=== PATIENT | male | born 1960 | race Caucasian/White ===

== ENCOUNTER 2016-08-09 15:06 | Emergency (ER) | payer OTHER ==
[~2016-08-09] VITALS: Ht 162.6 cm; Wt 70.8 kg
[~2016-08-09 15:06] MED LIST: AMB5 PO; BUPR-79 PO; IBUP600T44 PO; OXYC-57 PO
[2016-08-09 15:12] VITALS: BP 151/99; PULSE 91; TEMP 37; O2SAT 97; Ht 162.6 cm; Wt 70.8 kg
[2016-08-09] MEDS ORDERED: NAPR1TAB9 PO (19:38)
[2016-08-09] MEDS ORDERED: AMPH30TA2 PO (19:40)
[2016-08-09] MEDS ORDERED: PSEU30TA20 PO (19:42)
== END 2016-08-09 15:35 | disposition left against medical advice (07) ==
LOC: C.EDB 15:07
DX: R10.9 Unspecified abdominal pain (principal)

== ENCOUNTER 2016-08-09 18:09 | Emergency (ER) | payer OTHER ==
[~2016-08-09] VITALS: Ht 162.6 cm; Wt 69.4 kg
[2016-08-09 18:12] VITALS: TEMP 36.6; Ht 162.6 cm; Wt 69.4 kg
[2016-08-09] MEDS ORDERED: SODIUM CHLORIDE 0.9% 1000ML 1,000 ML IV STA (18:48)
[2016-08-09] MEDS ORDERED: PROMETHAZINE HCL INJ 12.5 MG in SODIUM CHLORIDE 0.9% 50ML 50 ML IV STA (18:48)
--- NOTE | 2016-08-09 18:58 | EMERGENCY ROOM VISIT NOTE ---
History Report prepared by Brenden: Ap Wade Under the Supervision of: Dr. Modesto Powers M.D. First contact with patient: 18:38 Chief Complaint: GI ASSESSMENT Stated Complaint: NAUSEA,DIZZY,HEADACHE Nursing Triage Summary: "My stomache is really messed up. It feels like somebody took a rake to it." Pain mid upper abdomen. Also reports headache. History of Present Illness The patient is a 55 year old male who presents to the Emergency Room with complaints of a constant headache since last night. The pain is localized behind the eyes and temples, and is rated 6/10 in severity. The onset of the headache was very sudden. The patient also complains of some nausea and dizziness. He denies any fevers, neck stiffness, vomiting, abdominal pain, weakness or numbness. The patient has headaches infrequently. He has not had a headache like this before. The patient denies any trauma. He does not have a history of cancer. The patient takes Adderall. He also takes Ambien almost every night. 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 Source of History: patient Onset: last night Position: head Symptom Intensity: 6/10 Timing: constant Associated Symptoms: + nausea, No fevers, No neck pain, No numbness, No vomiting, No weakness Review of Systems See HPI for pertinent positives & negatives. A total of 10 systems reviewed and were otherwise negative. Past Medical & Surgical Medical Problems: (1) No history of cancer Family History No pertinent family history Social History Smoking Status: Current Every Day Smoker Marital Status: Housing Status: lives with family Current/Historical Medications Scheduled Amphetamine-Dextroamphetamine 30MG (Adderall 30MG), 1 TAB PO DAILY Bupropion (Wellbutrin Sr), 150 MG PO DAILY Zolpidem Tartrate (Ambien *), 5 MG PO HS Scheduled PRN Naproxen (Aleve), 220 MG PO Q8H PRN for Pain Pseudoephedrine (Sudafed), 30 MG PO Q4H PRN for CONGESTION Allergies Coded Allergies: No Known Allergies (Verified , 08/09/16) Uncoded Allergies: HAY FEVER (Allergy, Unknown, 08/18/02) NONE (Allergy, Unknown, 08/18/02) Physical Exam Vital Signs Date Time Temp Pulse Resp B/P Pulse Ox O2 Delivery O2 Flow Rate FiO2 08/09/16 21:27 73 17 155/92 95 Room Air 08/09/16 19:51 76 19 143/84 98 Room Air 08/09/16 18:40 78 08/09/16 18:12 36.6 85 20 161/103 100 Room Air Physical Exam GENERAL: Patient is awake, alert, anxious and uncomfortable appearing. EYES: The conjunctivae are clear. The pupils are round and reactive. EARS, NOSE, MOUTH AND THROAT: The nose is without any evidence of any deformity. Mucous membranes are moist tongue is midline NECK: The neck is nontender and supple. RESPIRATORY: Normal respiratory effort is noted there is no evidence of wheezing rhonchi or rales CARDIOVASCULAR: Regular rate and rhythm noted there no murmurs rubs or gallops normal S1 normal S2 GASTROINTESTINAL: The abdomen is soft. Bowel sounds are present in all quadrants. Abdomen is nontender MUSCULOSKELETAL/EXTREMITIES: There is no evidence of gross deformity full range of motion is noted in the hips and shoulders SKIN: There is no obvious evidence of any rash. There are no petechiae, pallor or cyanosis noted. NEUROLOGIC: Patient is awake alert and oriented x3 strength is symmetric patellar reflexes are 2+ bilaterally Medical Decision & Procedures ER Provider Diagnostic Interpretation: Radiology results per my review and radiologist interpretation: HEAD CT NONCONTRAST CT DOSE: 601.98 mGy.cm HISTORY: Headache MUNOZ TECHNIQUE: Multiaxial CT images of the head were performed without the use of intravenous contrast. Comparison: None. Findings: The paranasal sinuses and mastoid air cells are clear. Subtle low-density region left occipital lobe. This is nonspecific. There is no evidence for acute intracranial hemorrhage. There is no midline shift. All remaining components of the brain are unremarkable. The fourth ventricle is midline. Impression: 1. Low density focus left occipital lobe. 2. This potentially relates to an old infarct although other etiologies are not excluded 3. No evidence for acute intracranial hemorrhage. 4. MRI of the brain combination, is suggested as follow-up. Electronically signed by: Marty Vaughn M.D. 08/09/2016 7:31 PM Dictated Date/Time: 08/09/2016 7:29 PM MRI OF THE BRAIN WITHOUT AND WITH IV CONTRAST CLINICAL HISTORY: MUNOZ and abnormal CT head COMPARISON STUDY: CT same date TECHNIQUE: Utilizing a 1.5 Addis magnet and dedicated coil, multiplanar, multiecho imaging of the brain was performed pre and postcontrast administration. IV administration of 8.5 mL of Gadavist contrast was uneventful. FINDINGS: Diffusion-weighted images show no evidence for an acute ischemic process. Signal characteristics the cerebellar as well as cerebral hemispheres indicate a minimal component of age-related chronic small vessel change. There is mild asymmetry occipital horns of the lateral ventricles accounting for the low density findings seen on the patient's CT exam. This appears to be primarily artifactual. No evidence for abnormal postcontrast enhancement. Ventricular system is midline. Internal artery canals is symmetric. Sella and parasellar regions are unremarkable. IMPRESSION: 1. Negative MRI of the brain for age. 2. CT findings appear to be primarily artifactual 3. No evidence for abnormal postcontrast enhancement. Electronically signed by: Marty Vaughn M.D. 08/09/2016 10:12 PM Dictated Date/Time: 08/09/2016 10:09 PM Laboratory Results 08/09/16 17:35 Red Blood Count 5.23, Mean Corpuscular Volume 80.3, Mean Corpuscular Hemoglobin 28.9, Mean Corpuscular Hemoglobin Concent 36.0, Mean Platelet Volume 9.5, Neutrophils (%) (Auto) 85.0, Lymphocytes (%) (Auto) 7.0, Monocytes (%) (Auto) 7.3, Eosinophils (%) (Auto) 0.3, Basophils (%) (Auto) 0.2, Neutrophils # (Auto) 5.09, Lymphocytes # (Auto) 0.42, Monocytes # (Auto) 0.44, Eosinophils # (Auto) 0.02, Basophils # (Auto) 0.01 08/09/16 17:35 Test 08/09/16 17:35 08/09/16 19:55 White Blood Count 5.99 K/uL (4.8-10.8) Red Blood Count 5.23 M/uL (4.7-6.1) Hemoglobin 15.1 g/dL (14.0-18.0) Hematocrit 42.0 % (42-52) Mean Corpuscular Volume 80.3 fL (80-100) Mean Corpuscular Hemoglobin 28.9 pg (25-34) Mean Corpuscular Hemoglobin Concent 36.0 g/dl (32-36) Platelet Count 159 K/uL (130-400) Mean Platelet Volume 9.5 fL (7.4-10.4) Neutrophils (%) (Auto) 85.0 % Lymphocytes (%) (Auto) 7.0 % Monocytes (%) (Auto) 7.3 % Eosinophils (%) (Auto) 0.3 % Basophils (%) (Auto) 0.2 % Neutrophils # (Auto) 5.09 K/uL (1.4-6.5) Lymphocytes # (Auto) 0.42 K/uL (1.2-3.4) Monocytes # (Auto) 0.44 K/uL (0.11-0.59) Eosinophils # (Auto) 0.02 K/uL (0-0.5) Basophils # (Auto) 0.01 K/uL (0-0.2) RDW Standard Deviation 37.1 fL (36.4-46.3) RDW Coefficient of Variation 12.8 % (11.5-14.5) Immature Granulocyte % (Auto) 0.2 % Immature Granulocyte # (Auto) 0.01 K/uL (0.00-0.02) Anion Gap 9.0 mmol/L (3-11) Est Creatinine Clear Calc Drug Dose 65.1 ml/min Estimated GFR () 88.4 Estimated GFR (Non- 76.2 BUN/Creatinine Ratio 19.5 (10-20) Calcium Level 8.2 mg/dl (8.5-10.1) Total Bilirubin 0.5 mg/dl (0.2-1) Direct Bilirubin 0.1 mg/dl (0-0.2) Aspartate Amino Transf (AST/SGOT) 24 U/L (15-37) Alanine Aminotransferase (ALT/SGPT) 41 U/L (12-78) Alkaline Phosphatase 60 U/L (45-117) Total Protein 7.3 gm/dl (6.4-8.2) Albumin 3.8 gm/dl (3.4-5.0) Lipase 113 U/L (73-393) Urine Color YELLOW Urine Appearance CLEAR (CLEAR) Urine pH 5.0 (4.5-7.5) Urine Specific [place] 1.035 (1.000-1.030) Urine Protein NEG (NEG) Urine Glucose (UA) NEG (NEG) Urine Ketones NEG (NEG) Urine Occult Blood NEG (NEG) Urine Nitrite NEG (NEG) Urine Bilirubin NEG (NEG) Urine Urobilinogen NEG (NEG) Urine Leukocyte Esterase NEG (NEG) Laboratory results per my review. Medications Administered Medications (Trade) Dose Ordered Sig/Nele Route Start Time Stop Time Status Last Admin Dose Admin Sodium Chloride (Nss 1000ml) 1,000 ml @ 999 mls/hr Q1H1M STAT IV 08/09/16 18:48 08/09/16 19:48 DC 08/09/16 19:01 999 MLS/HR Morphine Sulfate 4 mg 4 mg Q15M PRN IV 08/09/16 19:00 08/23/16 18:59 08/09/16 19:01 4 MG Promethazine HCl/ Sodium Chloride (Phenergan Inj/ Nss 50ml) 50.5 ml @ 204 mls/hr NOW STAT IV 08/09/16 18:48 08/09/16 19:02 DC 08/09/16 19:01 204 MLS/HR ED Course 1845: The patient was evaluated in room C6. A complete history and physical examination were performed. 1848: Promethazine HCl 12.5 mg / NSS 50.5 ml @ 204 mls/hr, NSS 1000 ml @999 mls/ hr. 1900: Morphine Sulfate 4 mg IV. 2200: Reassessed the patient. Discussed the findings with him. He verbalized understanding and agreement of the treatment plan. The patient is ready for discharge. 2215: Zofran Odt 4 mg PO homepack, Oxycodone IR 5 mg PO homepack. Medical Decision Etiologies such as migraine headache, meningitis, sinusitis, CO exposure, ICH, SAH, infection, tumor, headache, sinus thrombosis, arterial dissection, as well as others were entertained. Nursing notes reviewed. Additional history is obtained from the patient's significant other. The patient is a 55-year-old male who presented to the emergency department for an evaluation of headache. The patient describes a gradually worsening headache which began last evening. No meningismus fever or weakness. His physical exam did not reveal any focal neurologic deficits. The patient was treated with IV fluids IV pain medicine and IV antiemetics. On subsequent reevaluation he was feeling much better. He was found have some abnormality on his CAT scan this prompted an MRI the brain be obtained. The MRI did not reveal any acute abnormalities. The patient was encouraged to rest and avoid any strenuous activity. He was encouraged to continue to drink plenty clear liquids and call his primary care physician to schedule a follow-up appointment. He was also encouraged to return to the emergency department immediately if symptoms change worsen or need arises. Impression Primary Impression: Headache Additional Impression: Mild dehydration Scribe Attestation The scribe's documentation has been prepared under my direction and personally reviewed by me in its entirety. I confirm that the note above accurately reflects all work, treatment, procedures, and medical decision making performed by me. Departure Information Dispostion Home / Self-Care Referrals No Doctor, Assigned (PCP) Forms HOME CARE DOCUMENTATION FORM, IMPORTANT VISIT INFORMATION, Work Instructions Patient Instructions Headache Pain, [facility] Additional Instructions Call your family to schedule a follow-up appointment. Continue using Motrin and Tylenol as directed for pain. Rest and avoid any strenuous activity. Return to the emergency department if symptoms change worsen or the need arises. Problem Qualifiers
[2016-08-09] MEDS ORDERED: MoRPHine SULFATE 4 MG/ML 1 ML CARP\\VIAL IV PRN (19:00)
[2016-08-09 19:05] LABS: BASO % 0.2 %; BASO ABS # 0.01 K/uL (0-0.2); COMPLETE YES; EOS % 0.3 %; IG% 0.2 %; LYMPH ABS # 0.42 K/uL (1.2-3.4); MEAN CELL VOLUME 80.3 fL (80-100); MEAN CORPUSCULAR HEMOGLOBIN 28.9 pg (25-34); MEAN PLATELET VOLUME 9.5 fL (7.4-10.4); MONO % 7.3 %; PLATELET COUNT 159 K/uL (130-400); RED BLOOD COUNT 5.23 M/uL (4.7-6.1); WHITE BLOOD COUNT 5.99 K/uL (4.8-10.8)
[2016-08-09 19:19] LABS: BUN/CREATININE RATIO 19.5 (10-20); CALCIUM 8.2 mg/dl (8.5-10.1); CREATININE 1.1 mg/dl (0.60-1.40); POTASSIUM 3.8 mmol/L (3.5-5.1)
--- NOTE | 2016-08-09 19:33 | DIAGNOSTIC IMAGING REPORT ---
HEAD CT NONCONTRAST CT DOSE: 601.98 mGy.cm HISTORY: Headache MUNOZ TECHNIQUE: Multiaxial CT images of the head were performed without the use of intravenous contrast. Comparison: None. Findings: The paranasal sinuses and mastoid air cells are clear. Subtle low-density region left occipital lobe. This is nonspecific. There is no evidence for acute intracranial hemorrhage. There is no midline shift. All remaining components of the brain are unremarkable. The fourth ventricle is midline. Impression: 1. Low density focus left occipital lobe. 2. This potentially relates to an old infarct although other etiologies are not excluded 3. No evidence for acute intracranial hemorrhage. 4. MRI of the brain combination, is suggested as follow-up. Electronically signed by: Marty Vaughn M.D. 08/09/2016 7:31 PM Dictated Date/Time: 08/09/2016 7:29 PM
[2016-08-09] MEDS ORDERED: NAPR1TAB9 PO (19:38)
[2016-08-09] MEDS ORDERED: AMPH30TA2 PO (19:40)
[2016-08-09] MEDS ORDERED: PSEU30TA20 PO (19:42)
[2016-08-09 20:06] LABS: URINE APPEARANCE CLEAR (CLEAR); URINE BILIRUBIN NEG (NEG); URINE COLOR YELLOW; URINE NITRITE NEG (NEG); URINE SPECIFIC GRAVITY 1.035 (1.000-1.030); UROBILINOGEN NEG (NEG)
[2016-08-09 20:11] LABS: MANUAL MICROSCOPIC REQUIRED? NO; REVIEW REQ? NO
--- NOTE | 2016-08-09 22:13 | DIAGNOSTIC IMAGING REPORT ---
MRI OF THE BRAIN WITHOUT AND WITH IV CONTRAST CLINICAL HISTORY: MUNOZ and abnormal CT head COMPARISON STUDY: CT same date TECHNIQUE: Utilizing a 1.5 Addis magnet and dedicated coil, multiplanar, multiecho imaging of the brain was performed pre and postcontrast administration. IV administration of 8.5 mL of Gadavist contrast was uneventful. FINDINGS: Diffusion-weighted images show no evidence for an acute ischemic process. Signal characteristics the cerebellar as well as cerebral hemispheres indicate a minimal component of age-related chronic small vessel change. There is mild asymmetry occipital horns of the lateral ventricles accounting for the low density findings seen on the patient's CT exam. This appears to be primarily artifactual. No evidence for abnormal postcontrast enhancement. Ventricular system is midline. Internal artery canals is symmetric. Sella and parasellar regions are unremarkable. IMPRESSION: 1. Negative MRI of the brain for age. 2. CT findings appear to be primarily artifactual 3. No evidence for abnormal postcontrast enhancement. Electronically signed by: Marty Vaughn M.D. 08/09/2016 10:12 PM Dictated Date/Time: 08/09/2016 10:09 PM
[2016-08-09] MEDS ORDERED: ONDANSETRON HOME PACK 4MG OD TAB PO ONE (22:15)
[2016-08-09] MEDS ORDERED: OXYCODONE IR HOME PACK PO ONE (22:15)
[2016-08-09] MEDS ORDERED: GADAVIST IV PRN (22:15)
[2016-08-09 22:38] VITALS: BP 134/79; PULSE 73; O2SAT 97
== END 2016-08-09 22:39 | disposition home or self-care (01) ==
LOC: C.EDB 18:09 → C.EDC 22:39
DX: R51 Headache (principal); R11.0 Nausea; R42 Dizziness and giddiness; Z79.899 Other long term (current) drug therapy; F17.200 Nicotine dependence, unspecified, uncomplicated

== ENCOUNTER → 2017-01-16 | Outpatient (CLI) | payer OTHER ==
[~2017-01-16] MED LIST changes: +AMPH30TA2 PO; -IBUP600T44 PO; +NAPR1TAB9 PO; -OXYC-57 PO; +PSEU30TA20 PO
[2017-01-16 16:49] LABS: BASO % 0.4 %; BASO ABS # 0.02 K/uL (0-0.2); COMPLETE YES; EOS % 1.6 %; HEMATOCRIT 36.6 % (42-52); LYMPH % 37.3 %; LYMPH ABS # 1.87 K/uL (1.2-3.4); MEAN CELL VOLUME 80.8 fL (80-100); MEAN CORPUSCULAR HEMOGLOBIN 29.4 pg (25-34); MEAN CORPUSCULAR HGB CONC 36.3 g/dl (32-36); MEAN PLATELET VOLUME 9.5 fL (7.4-10.4); MONO % 9.4 %; NEUT % 51.3 %; PLATELET COUNT 211 K/uL (130-400); RED BLOOD COUNT 4.53 M/uL (4.7-6.1); WHITE BLOOD COUNT 5.01 K/uL (4.8-10.8)
[2017-01-16 17:03] LABS: ALT/SGPT 26 U/L (12-78); AST/SGOT 14 U/L (15-37); BLOOD UREA NITROGEN 18 mg/dl (7-18); BUN/CREATININE RATIO 16.8 (10-20); CALCIUM 8.7 mg/dl (8.5-10.1); CARBON DIOXIDE 28 mmol/L (21-32); CHLORIDE 109 mmol/L (98-107); CHOLESTEROL 159 mg/dl (0-200); GLUCOSE 73 mg/dl (70-99); POTASSIUM 3.6 mmol/L (3.5-5.1); SODIUM 143 mmol/L (136-145)
[2017-01-16 17:05] LABS: ALB/GLOB RATIO 1.4 (0.9-2); ALKALINE PHOSPHATASE 50 U/L (45-117); CHOLESTEROL/HDL RATIO 2.7; HDL CHOLESTEROL 59 mg/dl; LDL CHOLESTEROL CALCULATED 82 mg/dl; TRIGLYCERIDES 89 mg/dl (0-150); VERY LOW DENSITY LIPOPROT CALC 18 mg/dl
[2017-01-16 17:31] LABS: BENZODIAZEPINE, URINE NEG (NEG); COCAINE,URINE NEG (NEG); PHENCYCLIDINE, URINE NEG (NEG)
== END | disposition home or self-care (01) ==
LOC: C.LABBC 13:45
PROVIDERS: ATTEND Psychiatry & Neurology Psychiatry
DX: F90.0 Attention-deficit hyperactivity disorder, predominantly inattentive type (principal)